=== PATIENT | female | born 1960 | race Caucasian/White ===

== ENCOUNTER 2016-04-25 17:05 | Emergency (ER) | payer BC ==
[~2016-04-25] VITALS: Ht 170.2 cm; Wt 80.4 kg
[~2016-04-25 17:05] MED LIST: BACTRIM,SEPT1 TABLET PO; EFFEXOR XR150 MG PO; NAPROSYN500 MG PO; NORCO 5/3251 TABLET PO; TRAMADOL HCL50 MG PO
[2016-04-25] MEDS ORDERED: CLEOCIN300 MG PO (18:19)
[2016-04-25] MEDS ORDERED: KEFLEX500 MG PO (18:19)
[2016-04-25 18:32] VITALS: BP 131/89
== END 2016-04-25 18:33 | disposition home or self-care (01) ==
LOC: EME 17:05
DX: L02.512 Cutaneous abscess of left hand (principal); S69.92XA Unspecified injury of left wrist, hand and finger(s), initial encounter; W23.0XXA Caught, crushed, jammed, or pinched between moving objects, initial encounter; Z86.14 Personal history of Methicillin resistant Staphylococcus aureus infection
CPT/HCPCS: 99281; 99283

== ENCOUNTER 2016-10-28 11:08 | Emergency (ER) | payer BC ==
[~2016-10-28] VITALS: Ht 170.2 cm; Wt 82.9 kg
[~2016-10-28 11:08] MED LIST changes: +CLEOCIN300 MG PO; +KEFLEX500 MG PO
[2016-10-28 13:35] LABS: HEMATOCRIT 39.8 % (36.0-46.0); MCH 31.4 PG (29.0-34.0); MCHC 34.9 G/DL (30.0-36.0); MCV 89.8 FL (83-99); MEAN PLAT.VOLUME 9.6 uM^3 (9.5-12.4); PLATELET COUNT 205 K/uL (156-360); RBC DIS.WIDTH-CV 11.9 % (11.8-14.6); RBC DIS.WIDTH-SD 39.3 % (39-53); RED BLOOD COUNT 4.43 M/uL (3.80-5.20); WHITE BLOOD COUNT 7.2 K/uL (4.1-10.2)
[2016-10-28 13:43] LABS: CHLORIDE 106 mEq/L (99-109); SODIUM 140 mEq/L (136-147)
[2016-10-28 13:45] LABS: GLUCOSE 101 mg/dL (70-99)
[2016-10-28 13:47] LABS: ANION GAP 9 MEQ/L (2-14); TOTAL BILIRUBIN 0.5 mg/dL (0.0-1.0)
[2016-10-28 13:49] LABS: ALKALINE PHOSPHATASE 100 IU/L (3-129); GFR ESTIMATE (CALCULATED) > 59 mL/min/
[2016-10-28 13:50] LABS: ERTH.SED.RATE 19 MM/HR (0-30); UREA NITROGEN (BUN) 10 mg/dL (9-23)
[2016-10-28 14:15] LABS: ADD MIUA? YES; BILIRUBIN NEGATIVE; BLOOD SMALL; GLUCOSE (STRIP) NEGATIVE; KETONES NEGATIVE; LEUKOCYTES NEGATIVE; NITRITE NEGATIVE; PROTEIN (STRIP) NEGATIVE; SPECIFIC GRAVITY 1.005 (1.000-1.030); UROBILINOGEN 0.2 MG/DL (0.2-1.0)
[2016-10-28 14:18] LABS: COLOR PALE STRAW ((YELLOW))
[2016-10-28 14:20] LABS: BACTERIA NONE SEEN /HPF; EPITHELIAL CELLS NONE SEEN /HPF; MUCUS NONE SEEN /LPF; RED BLOOD CELLS 0-5 /HPF (0-5); UCUL ADDED? NO; WHITE BLOOD CELLS 0-5 /HPF (0-5)
[2016-10-28 15:51] VITALS: BP 138/80
== END 2016-10-28 15:52 | disposition home or self-care (01) ==
LOC: EME 11:08
PROVIDERS: Nurse Practitioner Family
DX: R53.83 Other fatigue (principal); R31.9 Hematuria, unspecified; Z87.440 Personal history of urinary (tract) infections; Z85.3 Personal history of malignant neoplasm of breast; F17.200 Nicotine dependence, unspecified, uncomplicated
CPT/HCPCS: 74176; 80053; 81003; 85027; 85651; 99281; 99283